=== PATIENT | male | born 1955 | race Caucasian/White ===

== ENCOUNTER → 2018-07-27 | Outpatient (REF) | payer MEDICARE ==
[~2018-07-27] MED LIST: /ACETCOD2T OR; /BACL20TA OR; ASPI325T OR; CHLORTHALIDONE PO; EFFIENT PO; LIPI20TA OR; LISI20TA5 OR; LOPR50TA OR; PROT20TA11 OR; TAMS0.4C PO; TRAM100T PO; TYLENOL ARTHRITIS PO
[2018-07-27 13:26] LABS: BASO # 0.1 10^3/uL (0.0-0.2); BASO % 0.6 % (0.0-1.0); EOS # 0.2 10^3/uL (0.0-0.50); EOS % 2.2 % (0.0-3.0); HEMATOCRIT 45.1 % (42.0-52.0); HEMOGLOBIN 15.8 g/dl (13.5-17.5); LYMPH # 1.5 10^3/uL (1.5-4.5); LYMPH % 18.2 % (24.0-44.0); MEAN CORPUSCULAR HEMOGLOBIN 30.8 pg (27.0-33.0); MEAN CORPUSCULAR VOLUME 87.9 fl (80.0-96.0); MONO # 0.7 10^3/uL (0.0-0.8); MONO % 8.4 % (0.0-5.0); NEUTROPHILS # 5.7 10^3/uL (1.8-7.7); NEUTROPHILS % 70.2 % (36.0-66.0); PLATELET COUNT, AUTOMATED 212 10^3/uL (150-450); RED BLOOD COUNT 5.13 10^6/uL (4.30-6.10); WHITE BLOOD COUNT 8.1 10^3/uL (4.0-10.0)
[2018-07-27 13:55] LABS: ALBUMIN 3.3 GM/DL (3.2-5.2); ALT/SGPT 36 U/L (12-78); BILIRUBIN,DIRECT 0.1 MG/DL (0.0-0.2); BILIRUBIN,TOTAL 0.4 MG/DL (0.2-1.0); CALCIUM LEVEL 8.7 MG/DL (8.8-10.2); GLOMERULAR FILTRATION RATE > 60.0 (>49); TOTAL PROTEIN 6.7 GM/DL (6.4-8.2)
[2018-08-03 00:07] LABS: ANGIOTENSIN 1 CONVERTING ENZYM 15 U/L (14-82); ASPERGILLUS FLAVUS ABY Negative (Neg:<1:1); ASPERGILLUS FUMIGATUS ABY Negative (Neg:<1:1); ASPERGILLUS NIGER ABY Negative (Neg:<1:1); BLASTOMYCES ANTIBODY LEVEL Negative (Neg:<1:1); CRYPTOCOCCUS ANTIGEN SER Negative (Negative); HISTOPLASMOSIS ANTIBODY Negative (Neg:<1:1); VITAMIN D 1,25 DIHYDROXY 35.1 pg/mL (19.9-79.3)
== END ==
LOC: M LAB REF 13:03
PROVIDERS: ATTEND Physician Assistant
DX: R06.00 Dyspnea, unspecified (principal)

== ENCOUNTER → 2018-08-03 | Outpatient (CLI) | payer MEDICARE ==
--- NOTE | 2018-08-03 10:35 | REP ---
Clinical: Abnormal lung findings. Comparison: Chest x-ray dated 04/26/2011. Technique: Axial noncontrast images from the thoracic inlet to the upper abdomen with coronal and sagittal re-formations. Findings: Innumerable bilateral calcified granulomas are identified measuring up to approximately 15 mm along with partially calcified mediastinal and hilar adenopathy is most compatible with granulomatous disease. Differential diagnosis may include post therapeutic changes related to metastatic disease and correlation with history may be warranted. No acute consolidation, soft tissue nodule or mass lesion appreciated. No pleural effusion. Tracheobronchial tree is patent. No pneumothorax. Mediastinum demonstrates atherosclerotic changes of the coronary arteries without cardiomegaly or pericardial effusion. Aortic contour is normal and without aneurysm. Musculoskeletal structures are intact; evidence for anterior cervical fusion. Upper abdomen demonstrates normal bilateral adrenal glands. Impression: 1. Scattered calcified granuloma up to 15 mm with partially calcified adenopathy is most compatible with chronic granulomatous disease. 2. No acute mediastinal or pleuroparenchymal process appreciated. Electronically Signed by Andreas Zaman MD 08/03/2018 10:28 A
== END ==
LOC: M RAD 09:52
PROVIDERS: ATTEND Physician Assistant
DX: J84.10 Pulmonary fibrosis, unspecified (principal); R06.00 Dyspnea, unspecified

== ENCOUNTER → 2018-08-16 | Outpatient (CLI) | payer MEDICARE ==
--- NOTE | 2018-08-21 11:27 | SLEEPCENT ---
DATE OF PROCEDURE: 08/16/2018 ORDERED BY: CHAD Medina Nocturnal polysomnography was performed for the titration of pressure therapy in this patient with obstructive sleep apnea syndrome. Apnea-hypopnea index 7.6. For testing the patient was fit with a [employer] and [employer] full face mask of small size; 4 cm of water pressure were applied to the circuit and the lights were extinguished. 7 hours and 12 minutes of data were reviewed. There were 250 minutes of sleep identified. Sleep latency was normal at 13 minutes. Rapid eye movement (REM) latency was normal at 85 minutes. Sleep architecture was fair. There were periods of wake however, that resulted in reduced sleep efficiency of 59%. The patient's electrocardiogram showed a the sinus rhythm with an average heart rate of 68 beats per minute. EEG showed normal waveforms for awake and sleep. Persistence of respiratory events prompted an increase in pressure therapy. Bilevel pressure was attempted, however best sleep was seen on CPAP pressure +14. There was minimal activity in the limb leads and remaining measures of sleep physiology were normal. IMPRESSION: Obstructive sleep apnea syndrome (G47.33). RECOMMENDATIONS: Nightly use of pressure therapy 14 cm of water.
== END ==
LOC: M SLEEP 19:37
PROVIDERS: ATTEND Physician Assistant
DX: G47.33 Obstructive sleep apnea (adult) (pediatric) (principal)

== ENCOUNTER → 2019-08-22 | Outpatient (CLI) | payer MEDICARE ==
[~2019-08-22] MED LIST changes: -/ACETCOD2T OR; -/BACL20TA OR; +ACET1TAB15 OR; +BACL1TAB9 OR; +PROHANCE 279.3MG/ML 15ML VIAL (A9576) As Ordered ONE; +PROHANCE 279.3MG/ML 5ML VIAL (A9576) As Ordered ONE
--- NOTE | 2019-08-23 08:33 | REP ---
INDICATION: Spondylosis with myelopathy PROCEDURE: MRI of the cervical spine with and without contrast. COMPARISON STUDIES: No prior similar studies. FINDINGS: There is anterior cervical discectomy and fusion (ACDF) C5, C6 and C7 levels. Hardware limits evaluation in the vicinity of the hardware. On the sagittal T2-weighted images, the canal narrows at the C4-5 level with cord impingement. The remaining levels, no limiting canal stenosis. Craniovertebral junction is unremarkable. The cervical cord demonstrates abnormal cord signal at the levels of the fusion, C4-5 and C5-6 levels. There is T2 hyperintensity within the martin matter of the cord that is likely consistent with myelomalacia from chronic cord compression prior to surgery. On review of axial images At C2-3 no significant canal or foraminal narrowing At C3-4 disc/osteophyte complex with [id number] canal stenosis on the left with cord impingement and mild cord compression. There is [id number] bilateral disc/osteophyte ridging with [id number]-[id number]-[id number] bilateral foraminal narrowing at this level. At C4-5 disc/osteophyte complex with a central osteophyte and narrowing of the neural foramen, slightly greater on the right. There is severe canal stenosis with cord impingement and cord compression. There is severe right and moderate left foraminal narrowing at this level. At C5-6 there is [id number]-gv-iucggdyo canal stenosis and moderate bilateral foraminal narrowing At C6-7 disc/osteophyte complex with moderate canal narrowing and moderate bilateral foraminal narrowing. There is a shallow osteophyte slightly left paracentral. At C7-T1 prominent disc/osteophyte complex on the left with facet hypertrophy, with at least moderate left foraminal narrowing, mild canal narrowing and mild right foraminal narrowing. Following contrast, no definite abnormal enhancement. IMPRESSION: 1. ACDF C5-C6-C7 levels. Hardware somewhat limits evaluation in the immediate vicinity of the hardware. 2. Myelomalacia at the levels of the fusion, C4-5 and C5-6 levels. 3. Canal stenosis with cord impingement and cord compression C3-4 and C4-5. 4. Disc/osteophyte complex formation with multilevel foraminal narrowing as described. Electronically Signed by Jayant Emery MD 08/23/2019 08:24 A
== END ==
LOC: M RAD 15:14
PROVIDERS: ATTEND Orthopaedic Surgery
DX: M47.12 Other spondylosis with myelopathy, cervical region (principal)
CPT/HCPCS: 72156; A9576

== ENCOUNTER → 2020-06-20 | Outpatient (CLI) | payer MEDICARE ==
[~2020-06-20] MED LIST changes: +ARNU1INH INH; +ASPI81TA26 PO; +ATOR40TA75 PO; +CHLO125TA PO; +FISH1000 PO; +FLOM0.4C39 PO; +HYDR-3363 PO; +LISI-538 PO; +METO25TA4 PO; +PANT40TA29 PO; -PROHANCE 279.3MG/ML 15ML VIAL (A9576) As Ordered ONE; -PROHANCE 279.3MG/ML 5ML VIAL (A9576) As Ordered ONE; +[UNRECOGNIZED DRUG - REMARK]
== END ==
LOC: M LABSMTC 08:09
PROVIDERS: ATTEND Anesthesiology
DX: Z01.812 Encounter for preprocedural laboratory examination (principal); Z20.828 Contact with and (suspected) exposure to other viral communicable diseases

== ENCOUNTER 2020-06-25 10:51 | Day surgery (SDC) | payer MEDICARE ==
[~2020-06-25] VITALS: Ht 175.3 cm; Wt 99.8 kg
[~2020-06-25 10:51] MED LIST changes: +NS 1,000 ML IV ONE; +propofoL 200 MG/20 ML VIAL As Ordered ONE
--- NOTE | 2020-06-25 11:41 | ROOR ---
Patient Name: Gonzalez Cedillo Procedure Date: 06/25/2020 11:17 AM Date of : 1955 Age: 65 Room: [facility] Gender: Male Note Status: Finalized Procedure: Colonoscopy Indications: Screening for colorectal malignant neoplasm Providers: Kenny Cline Jr, MD Referring MD: Gabriela Givens MD Requesting Provider: Medicines: Propofol per Anesthesia Complications: No immediate complications. Procedure: Pre-Anesthesia Assessment: - Prior to the procedure, a History and Physical was performed, and patient medications and allergies were reviewed. The patient is competent. The risks and benefits of the procedure and the sedation options and risks were discussed with the patient. All questions were answered and informed consent was obtained. Patient identification and proposed procedure were verified by the physician and the nurse in the pre-procedure area and in the procedure room. Mental Status Examination: alert and oriented. Airway Examination: normal oropharyngeal airway and neck mobility. Respiratory Examination: clear to auscultation. CV Examination: normal. ASA Grade Assessment: II - A patient with mild systemic disease. After reviewing the risks and benefits, the patient was deemed in satisfactory condition to undergo the procedure. The anesthesia plan was to use moderate sedation / analgesia (conscious sedation). Immediately prior to administration of medications, the patient was re-assessed for adequacy to receive sedatives. The heart rate, respiratory rate, oxygen saturations, blood pressure, adequacy of pulmonary ventilation, and response to care were monitored throughout the procedure. The physical status of the patient was re-assessed after the procedure. The Colonoscope was introduced through the anus and advanced to the cecum, identified by appendiceal orifice and ileocecal valve. The colonoscopy was performed without difficulty. The patient tolerated the procedure well. Findings: Two polyps were found in the sigmoid colon and transverse colon. The polyps were diminutive in size. These polyps were removed with a cold snare. Resection and retrieval were complete. The rectum, recto-sigmoid colon, sigmoid colon, descending colon, ascending colon, cecum, appendiceal orifice and ileocecal valve appeared normal. Impression: - Two diminutive polyps in the sigmoid colon and in the transverse colon, removed with a cold snare. Resected and retrieved. - The rectum, recto-sigmoid colon, sigmoid colon, descending colon, ascending colon, cecum, appendiceal orifice and ileocecal valve are normal. Recommendation: - Discharge patient to home (ambulatory). - Repeat colonoscopy in 5-10 years for surveillance based on pathology results. Procedure Code(s): --- Professional --- 50084, Colonoscopy, flexible; with removal of tumor(s), polyp(s), or other lesion(s) by snare technique Diagnosis Code(s): --- Professional --- Z12.11, Encounter for screening for malignant neoplasm of colon K63.5, Polyp of colon CPT copyright 2019 [employer]. All rights reserved. The codes documented in this report are preliminary and upon oracle adf developer review may be revised to meet current compliance requirements. Kenny Cline MD Kenny Cline Jr, MD 06/25/2020 11:41:04 AM Electronically signed by Kenny Cline Jr, MD Number of Addenda: 0 Note Initiated On: 06/25/2020 11:17 AM Estimated Blood Loss: Estimated blood loss: none.
[2020-06-25 12:05] VITALS: BP 171/96
== END 2020-06-25 12:12 | disposition home or self-care (01) ==
LOC: M OPP 10:51
PROVIDERS: ATTEND Surgery
DX: Z12.11 Encounter for screening for malignant neoplasm of colon (principal); D12.6 Benign neoplasm of colon, unspecified; Z79.82 Long term (current) use of aspirin; Z79.899 Other long term (current) drug therapy; Z95.5 Presence of coronary angioplasty implant and graft; Z87.891 Personal history of nicotine dependence

== ENCOUNTER → 2020-12-18 | Outpatient (REF) | payer MEDICARE ==
[~2020-12-18] MED LIST changes: -LISI-538 PO; +LISI20TA33 PO; -NS 1,000 ML IV ONE; -propofoL 200 MG/20 ML VIAL As Ordered ONE
[2020-12-18 13:19] LABS: HEMOGLOBIN A1c 5.8 %
[2020-12-18 13:34] LABS: MALB URINE SIEMENS 11.6 MG/L; MAU/CREAT RATIO 5.2 MCG/MG (0.0-30.0)
[2020-12-18 13:53] LABS: ALT/SGPT 51 U/L (12-78); BILIRUBIN,TOTAL 0.9 MG/DL (0.2-1.0); BLOOD UREA NITROGEN 17 MG/DL (7-18); CALCIUM LEVEL 9.5 MG/DL (8.8-10.2); CARBON DIOXIDE LEVEL 27 MEQ/L (21-32); CHLORIDE LEVEL 105 MEQ/L (98-107); CREATININE FOR GFR 0.77 MG/DL (0.70-1.30); GLOMERULAR FILTRATION RATE > 60.0 (>49); GLUCOSE, FASTING 106 MG/DL (70-100); SODIUM LEVEL 140 MEQ/L (136-145); TOTAL PROTEIN 7.3 GM/DL (6.4-8.2)
== END ==
LOC: M LABDRWAD 12:15
PROVIDERS: ATTEND Nurse Practitioner Family
DX: R73.03 Prediabetes (principal)

== ENCOUNTER → 2024-06-24 | Outpatient (REF) | payer MEDICARE ==
[2024-06-24 18:38] LABS: FREE T4 1.19 NG/DL (0.89-1.76); THYROID STIMULATING HORMONE 3.009 uIU/ML (0.55-4.78)
[2024-06-24 18:46] LABS: ALBUMIN 3.6 G/DL (3.2-5.2); ALKALINE PHOSPHATASE 77 U/L (40-129); ALT/SGPT 40 U/L (7.0-40); AST/SGOT 27 U/L (<34); BILIRUBIN,TOTAL 0.5 MG/DL (0.3-1.2); BLOOD UREA NITROGEN 19 MG/DL (9-23); CALCIUM LEVEL 9.5 MG/DL (8.3-10.6); CARBON DIOXIDE LEVEL 29 MMOL/L (20-31); CHLORIDE LEVEL 105 MMOL/L (98-107); CHOLESTEROL LEVEL 127 MG/DL (<200); CHOLESTEROL RISK RATIO 3.81 (<5); CREATININE FOR GFR 0.72 MG/DL (0.70-1.30); GLOMERULAR FILTRATION RATE > 60.0 (>49); GLUCOSE, FASTING 95 MG/DL (74-106); HDL CHOLESTEROL 33.3 MG/DL (>40); LDL CHOLESTEROL 64.3 MG/DL (<100); NON-HDL-C 93.7 MG/DL; POTASSIUM SERUM 3.9 MMOL/L (3.5-5.1); SODIUM LEVEL 143 MMOL/L (136-145); TOTAL PROTEIN 6.8 G/DL (5.7-8.2); TRIGLYCERIDES LEVEL 147 MG/DL (<150)
[2024-06-24 18:51] LABS: HEMOGLOBIN A1c 5.8 % (4.0-6.0)
== END ==
LOC: M LABDRWAD 17:12
PROVIDERS: ATTEND Nurse Practitioner Family
DX: I10 Essential (primary) hypertension (principal); R73.03 Prediabetes; E78.2 Mixed hyperlipidemia

== ENCOUNTER → 2024-07-06 | Outpatient (CLI) | payer MEDICARE | LOC: M RAD 08:18 | PROVIDERS: ATTEND Nurse Practitioner Family | DX: M48.02 Spinal stenosis, cervical region (principal); M50.321 Other cervical disc degeneration at C4-C5 level; M50.20 Other cervical disc displacement, unspecified cervical region ==